=== PATIENT | female | born 1980 | race Caucasian/White ===

== ENCOUNTER 2016-07-10 12:15 | Inpatient (IN) | payer OTHER ==
[2016-07-10 12:42] LABS: ADD MORPH? NO; FRAGMENT RBC FLAG 0 (0-99); LIPEMIA HEMOLYSIS FLAG 90 (0-99); PLATELET CLUMPS FLAG 0 (0-99)
[2016-07-10] MEDS ORDERED: NS 1,000 ML BAG *FOR SEPSIS ORDER SET ONLY IV ONE (12:51)
--- NOTE | 2016-07-10 12:51 | EDPHY ---
H & P Stated Complaint: cough/fever Time Seen by Provider: 07/10/16 12:27 HPI/ROS: CHIEF COMPLAINT: cough, fever HISTORY OF PRESENT ILLNESS: 36-year-old female presents complaining of cold symptoms x1 week worsening. Patient reports cough, shortness of breath, sore throat, nasal congestion that has worsened over the past 3 days. Patient reports chest pain with coughing and she feels short of breath. She took ibuprofen yesterday. Patient denies nausea, vomiting or diarrhea, no abdominal pain. She denies urinary symptoms times. Patient reports her symptoms significantly worsened in the last 24 hours. Subjective fever and chills. REVIEW OF SYSTEMS: A comprehensive 10 point review of systems is otherwise negative aside from elements mentioned in the history of present illness. Source: Patient Exam Limitations: No limitations - Personal History LMP (Females 10-55): Now Current Tetanus/Diphtheria Vaccine: No - Medical/Surgical History Hx Asthma: No Hx Chronic Respiratory Disease: No Hx Diabetes: No Hx Cardiac Disease: No Hx Renal Disease: No Hx Cirrhosis: No Hx Alcoholism: No Hx HIV/AIDS: No Hx Splenectomy or Spleen Trauma: No Other PMH: epilepsy - Family History Significant Family History: No pertinent family hx - Social History Smoking Status: Current every day smoker - Physical Exam Exam: Physical Exam Gen: Awake, restless HEENT: PERRL, dry mucous membranes, posterior pharynx with erythema, no exudate , uvula midline, no tonsillar swelling, no peritonsillar abscess, bilateral nasal turbinates with erythema and swelling, bilateral TMs normal NECK: no meningismus CV: Tachycardic rate and regular rhythm PULM: Rhonchi bilateral bases ABDOMEN: soft, non tender to palpation, BS present BACK: No CVA tenderness NEURO: Neurologically grossly intact EXTREMITIES: normal appearing SKIN: no rash or break in skin on exposed skin PSYCH: answers questions appropriately. Constitutional: Initial Vital Signs Temperature (C) 36.5 C 07/10/16 12:19 Heart Rate 125 H 07/10/16 12:19 Respiratory Rate 28 H 07/10/16 12:19 Blood Pressure 95/70 L 07/10/16 12:19 O2 Sat (%) 80 L 07/10/16 12:19 O2 Delivery Mode Non-Rebreather Mask O2 (L/minute) 15 Allergies/Adverse Reactions: acetaminophen [Acetaminophen] Allergy (Unknown, Verified 07/10/16 12:17) Other-Enter Comments naproxen [Naproxen] Allergy (Unknown, Verified 07/10/16 12:17) Other-Enter Comments Home Medications: Medication Instructions Recorded Divalproex ER [Depakote ER 500 MG 3,000 mg PO DAILY 11/21/12 (RX)] Cyclobenzaprine [Flexeril 10 MG 10 mg PO TID PRN 07/10/16 (*)] Temazepam [Restoril 15 MG (*)] 15 mg PO HS PRN 07/10/16 Medical Decision Making - Diagnostics Imaging: Chest x-ray independently reviewed by me- Findings: Extensive interstitial and slightly nodular infiltrates are present throughout both lungs. Findings are compatible with acute interstitial pneumonitis, such as acute viral pneumonitis. No pleural effusion. Heart size is normal.. Visualized osseous structures appear normal. Impression: Diffuse interstitial infiltrates throughout both lungs, potential viral pneumonitis.. Dictated By: Alex Foreman MD ED Course/Re-evaluation: 36-year-old female presents cold symptoms x1 week with fevers, cough shortness of breath and nasal congestion. Room air oxygen saturations are 80%. Patient is placed in a gown, placed on 6 L nasal cannula, IV established, CBC, chemistry panel, lactic acid, blood cultures, urinalysis and chest x-ray have been ordered. 1 L normal saline hanging. 1253-severe sepsis identified with patient being tachycardic, hypoxic and a lactic acid of 2.5. Sepsis order set initiated. 2 g ceftriaxone ordered. Chest x-ray is pending. I have reviewed the care of this patient with my supervising physician Dr. Caro. 1300-chest x-ray shows a bilateral pneumonia. The patient is has a map of 70. IV fluids are infusing. 1345-patient has a map of 77, repeat lactic acid ordered after patient has received 2 L normal saline. Patient reports feeling much better, she continues on a face mask with 15 L of oxygen heart rate down to 105, oxygen saturations 93 %. Patient admitted to the ICU to Dr. Hammond. PICC line has been ordered. 1410- Lactate down to 1.3. BP 108/70 with a map of 76. 1420- 500 mg of azithromycin IV has been ordered. 1500-Dr. Sifuentes with hospital medicine at bedside. Patient with a map of 82. Patient on continuous monitor, partner at bedside. - Data Points Laboratory Results: Laboratory Results 07/10/16 12:35 07/10/16 12:35 07/10/16 12:35 WBC REJ RBC REJ Hgb REJ Hct REJ MCV REJ MCH REJ MCHC REJ RDW REJ Plt Count REJ MPV REJ Neut % (Auto) Not Reported Lymph % (Auto) Not Reported Harlan % (Auto) Not Reported Eos % (Auto) Not Reported Baso % (Auto) Not Reported Nucleat RBC Rel Count REJ Absolute Neuts (auto) Not Reported Absolute Lymphs (auto) Not Reported Absolute Monos (auto) Not Reported Absolute Eos (auto) Not Reported Absolute Basos (auto) Not Reported Absolute Nucleated RBC REJ Immature Gran % Not Reported Immature Gran # Not Reported Platelet Estimate REJ VBG Lactic Acid 2.5 H mmol/L (0.7-2.1) Turbidity TNP Sodium TNP Potassium TNP Chloride TNP Carbon Dioxide TNP Anion Gap TNP BUN TNP Creatinine TNP Estimated GFR TNP Glucose TNP Calcium TNP Beta HCG, Qual REJ Specimen Hemolysis REJ Influenza Typ A,B (DFA) NEGATIVE FOR FLU (NEGATIVE) Medications Given: Discontinued Medications Ceftriaxone Sodium 2 gm/ (Dextrose) 50 mls @ 100 mls/hr IV EDNOW ONE PRN Reason: Protocol Stop: 07/10/16 13:23 Last Admin: 07/10/16 13:25 Dose: 50 mls Azithromycin 500 mg/ Dextrose 255 mls @ 255 mls/hr IV EDNOW ONE PRN Reason: Protocol Stop: 07/10/16 15:20 Last Admin: 07/10/16 15:23 Dose: 255 mls Sodium Chloride (Ns *For Sepsis Order Set Only*) 1,769 ml IV EDNOW ONE Stop: 07/10/16 12:52 Last Admin: 07/10/16 13:06 Dose: 1,769 ml Departure - Departure Disposition: [facility] Inpatient Acute Clinical Impression: Pneumonia Qualifiers: Pneumonia type: due to unspecified organism Laterality: bilateral Lung location : unspecified part of lung Qualifier Code: (J18.9) Pneumonia, unspecified organism
[2016-07-10] MEDS ORDERED: PIPERACILLIN/TAZO 4.5 GM/DEX 100 ML IV ONE (12:52)
[2016-07-10 12:54] LABS: ATYPICAL LYMPHOCYTE FLAG 100 (0-99); LEFT SHIFT FLG 290 (0-99)
[2016-07-10] MEDS ORDERED: cefTRIAXone 2 GM in D5W 50 ML IV ONE (12:54)
--- NOTE | 2016-07-10 13:13 | DX ---
PA and lateral chest. July 09, 2016. Clinical History: Flulike symptoms Comparison Study: September 03, 2012. Findings: Extensive interstitial and slightly nodular infiltrates are present throughout both lungs. Findings are compatible with acute interstitial pneumonitis, such as acute viral pneumonitis. No pleu ral effusion. Heart size is normal.. Visualized osseous structures appear normal. Impression: Diffuse interstitial infiltrates throughout both lungs, potential viral pneumonitis..
[2016-07-10 13:25] LABS: ABSOLUTE NRBC COUNT 0.09 10^3/uL (0-0.01); ADD DIFF? YES; ADD MORPH? NO; FRAGMENT RBC FLAG 0 (0-99); HEMATOCRIT 35.1 % (38.0-47.0); HEMOGLOBIN 12.5 g/dL (12.6-16.3); LIPEMIA HEMOLYSIS FLAG 90 (0-99); MEAN CELL HEMOGLOBIN 30.3 pg (27.9-34.1); MEAN CELL HEMOGLOBIN CONCENTR. 35.6 g/dL (32.4-36.7); MEAN CELL VOLUME 85.2 fL (81.5-99.8); MEAN PLATELET VOLUME 9.7 fL (8.7-11.7); NRBC-AUTO% 0.4 % (0.0-0.2); PLATELET CLUMPS FLAG 10 (0-99); PLATELET COUNT 217 10^3/uL (150-400); RED BLOOD CELL COUNT 4.12 10^6/uL (4.18-5.33); RED CELL DISTRIBUTION WIDTH 14.3 % (11.5-15.2)
[2016-07-10 13:27] LABS: ATYPICAL LYMPHOCYTE FLAG 120 (0-99); LEFT SHIFT FLG 300 (0-99)
[2016-07-10 13:40] LABS: ANION GAP 12 mEq/L (8-16); CALCIUM 6.9 mg/dL (8.5-10.4); CARBON DIOXIDE 26 mEq/l (22-31); CHLORIDE 98 mEq/L (97-110); CREATININE 0.6 mg/dL (0.6-1.0); GLOMERULAR FILTRATION RATE > 60; GLUCOSE 109 mg/dL (70-100); POTASSIUM 3.1 mEq/L (3.5-5.2); SODIUM 136 mEq/L (134-144)
[2016-07-10] MEDS ORDERED: ALTEPLASE 2 MG VIAL IVP PRN (13:41)
[2016-07-10 13:50] LABS: PLATELET ESTIMATE ADEQUATE (ADEQ)
[2016-07-10 13:57] LABS: COLOR YELLOW; LEUKOCYTE ESTERASE,URINE NEGATIVE (NEGATIVE); NITRITE,URINE NEGATIVE (NEGATIVE)
[2016-07-10 14:05] LABS: BACTERIA TRACE /hpf (NONE SEEN); MUCUS TRACE /lpf (NONE-1+)
[2016-07-10] MEDS ORDERED: AZITHROMYCIN IV 500 MG in D5W 250 ML IV ONE (14:21)
[2016-07-10 14:22] LABS: IONIZED CALCIUM 0.94 MMOL/L (1.12-1.30)
[2016-07-10] MEDS ORDERED: ONDANSETRON 4 MG/2 ML VIAL IVP PRN (14:30)
[2016-07-10] MEDS ORDERED: ONDANSETRON DISINTEGRATING 4 MG TAB PO PRN (14:30)
[2016-07-10] MEDS ORDERED: PROTOCOL MAGNESIUM 1 DOSE IV PRN (14:34)
[2016-07-10] MEDS ORDERED: PROTOCOL POTASSIUM 1 DOSE MISC PRN (14:34)
[2016-07-10 14:36] LABS: ALBUMIN 2.4 g/dL (3.5-5.0); BILIRUBIN,TOTAL 0.5 mg/dL (0.1-1.4); BILIRUBIN-CONJUGATED 0.5 mg/dL (0.0-0.5); TOTAL PROTEIN 5.3 g/dL (6.3-8.2)
[2016-07-10] MEDS ORDERED: CALCIUM GLUCONATE 2 GM in D5W 50 ML IV ONE (14:40)
[2016-07-10] MEDS ORDERED: PROTOCOL CALCIUM 1 DOSE IV PRN (14:41)
[2016-07-10 15:04] LABS: MAGNESIUM 2.2 mg/dL (1.6-2.3)
--- NOTE | 2016-07-10 16:57 | GHP ---
[f rep st] HISTORY AND PHYSICAL DATE OF ADMISSION: 07/10/2016 CHIEF COMPLAINT: Acute hypoxia, cough. HISTORY OF PRESENT ILLNESS: Patient is a 36-year-old female with history of epilepsy, presenting wit h upper respiratory symptoms for 1 week and acute hypoxia. Reports having a cough with green sputum production, sore throat, fevers and chills for the past week. Also endorses headache, nausea, decrea sed p.o. intake. Endorses chills, sweats, shortness of breath. Pain under ribs, sharp in nature, es pecially with coughing. Denies any ill contacts. Denies nausea, vomiting or diarrhea. Does endorse myalgias. Denies IV drug use. No recent travel. Only pets are 2 cats which she has had a long carlos e. No birds. REVIEW OF SYSTEMS: A complete 10-point review of systems negative except as noted in HPI. PAST MEDICAL HISTORY: Epilepsy, last seizure was 2 weeks ago. States has seizures twice a week, fol lowed by Dr. Ren, at [place]. PAST SURGICAL HISTORY: Oral surgery. SOCIAL HISTORY: Lives in [place] with caregiver, Julien. Tobacco use: 1 pack every 2 days but has n ot smoked in the past week. Smokes marijuana daily. No alcohol. Denies IV drug use. Disabled seco ndary to epilepsy. FAMILY HISTORY: No strokes or heart attacks. MEDICATIONS: See medication reconciliation. ALLERGIES: Naproxen, Advil, and Tylenol. PHYSICAL EXAMINATION: VITAL SIGNS: Temperature 36.5, blood pressure 95/70, heart rate 125, respirat ions 28, 80% on room air. Blood pressure now 98/64, 92% on 50 L OxyMask. GENERAL: Patient is very i ll appearing, uncomfortable. HEENT: PERRLA. EOMI. Very dry mucous membranes. Oropharynx is clear . No exudate or erythema. No ulcerations. CV: Tachy but regular. No murmurs, gallops, or rubs. LUNGS: Rhonchorous throughout. Decreased breath sounds at bases. ABDOMEN: Soft, nontender, nondis tended. Positive bowel sounds. : No suprapubic tenderness. MUSCULOSKELETAL: Moving all extremi ties. NEURO: 2-12 intact. No focal deficits. PSYCHIATRIC: Alert and oriented x3. LABORATORY DATA: WBC 25, hemoglobin 12, hematocrit 35, platelets 217. Lactic acid is 2.5, repeat wa s 1.3. Sodium 136, potassium 3.1, chloride 98, carbon dioxide 26, BUN 10, creatinine 0.6, glucose 10 9, calcium 6.9. 0.94. AST 29, ALT 129, bilirubin 0.5, albumin 2.4, total protein 5.3, ma gnesium 2.2. Trace urine bacteria, +3 blood. Influeza DFA negative. Influenza PCR pending. EKG pe nding. Chest x-ray, personally reviewed by me, diffuse bilateral infiltrates. ASSESSMENT AND PLAN: 1. Sepsis secondary to pulmonary source. Suspect this is a viral etiology but could be superimposed with bacteria. DFA influenza was negative. Awaiting PCR for confirmation. Also checking a respira tory viral panel, as well as induced sputum. We will treat with ceftriaxone and azithromycin. We wi ll ask patient if may check HIV. 2. Leukocytosis secondary to sepsis secondary to pulmonary source. Blood cultures are pending. Spu dalia cultures and viral panel as above. 3. Lactic acidosis secondary to starvation ketoacidosis and hypotension. This resolved with IV flui ds quickly. 4. Hypocalcemia, repleting. We will place on electrolyte protocol. 5. Hypokalemia secondary to decreased p.o. intake, repleting today. Magnesium is normal. We will p lace on protocol. 6. Acute hypoxemic respiratory failure secondary to suspected viral etiology. Continue antibiotics. 7. Hypotension secondary to decreased p.o. intake. This has improved with aggressive IV fluids. We will continue this. Monitor in the ICU closely. 8. Epilepsy, continue home medications. 9. Diet: Regular. 10. DVT prophylaxis, Lovenox. DISPOSITION: The patient warrants ICU admission given acute sepsis, hypotension warranting aggressiv e IV fluid resuscitation, as well as antibiotics. /[id number]/MODL
[2016-07-10] MEDS: NS 1,000 ML IV SCH ×2 (17:13→22:56)
[2016-07-10] MEDS: guaiFENesin/CODEINE PHOS 10 ML UDCUP PO PRN ×2 (17:38→22:56)
[2016-07-10] MEDS: POTASSIUM Cl (KCl) 100 ML IV SCH ×3 (17:42→19:47)
--- NOTE | 2016-07-10 18:02 | GCON ---
[f rep st] CONSULTATION LPN OR MEDICAL ASSISTANT CONSULTATION REASON FOR ADMISSION: Diffuse pneumonia. HISTORY: Ms. Gregorio is a very pleasant 36-year-old white female with a past medical history of seizu re disorder. She presents with a 1-week history of increasing breathlessness. This is associated wi th a cough, as well as sore throat. Over last several days, her cough has increased and worsened in severity. Her cough is productive of yellowish to green sputum. She admits some chest pain. There has been no nausea or vomiting. No diarrhea. Prior to this, she was in her normal state of health. She is markedly dyspneic at this time. PAST MEDICAL HISTORY: Again, significant for seizure disorder. ALLERGIES: No known allergies to medications. SOCIAL HISTORY: She is a 15 pack-year smoker and continues to smoke. No significant alcohol use. S he does smoke marijuana. She is currently disabled. She lives with a partner, has good family suppo rt. PHYSICAL EXAM: VITAL SIGNS: Blood pressure 90/64, pulse 100, respirations 20, temperature 36.7, oxy gen saturation 92% on 15% OxyMask. GENERAL: She is a very thin 36-year-old white female, who is in mild respiratory distress. HEENT: Eyes are INGRIS, EOMI. Throat shows no erythema or tonsillar hype rtrophy. NECK: Supple. There is no cervical adenopathy. HEART: Regular rate and rhythm without m urmurs, rubs, or gallops. LUNGS: Show diminished breath sounds. A few bibasilar crackles, but no w heeze. ABDOMEN: Soft, nontender. Bowel sounds are present in all 4 quadrants. EXTREMITIES: No cl ubbing, cyanosis, or edema. LABORATORIES: White count is 25.2, hemoglobin 12, hematocrit 35, platelet count is 217. Sodium 136, potassium 3.1 chloride 98, CO2 is 26, BUN 10, creatinine 0.6, glucose is 109. Alkaline phosphatase i s elevated at 128. Urinalysis is negative. Influenza A and B by DFA are negative for flu. IMAGING: Chest x-ray shows diffuse interstitial infiltrates in both lungs. IMPRESSION: 1. Diffuse pneumonia: Query whether this is indeed viral, which is most likely. Must also take int o consideration atypical bacterial pneumonia. 2. Respiratory failure. 3. History of seizure disorder. 4. Chest pain. 5. Hypokalemia. RECOMMENDATIONS: 1. I agree with current antibiotic coverage of Rocephin, as well as azithromycin. 2. Frequent nebulized treatments with albuterol. 3. Adequate pain control. 4. Supplemental oxygen, weaning as tolerated. 5. Close cardiopulmonary monitoring. 6. DVT and PE prophylaxis. 7. Stress ulcer prophylaxis. /[id number]/MODL
[2016-07-10] MEDS: BENZONATATE 100 MG CAP PO PRN (18:15)
[2016-07-10] MEDS ORDERED: NS 2,000 ML IV ONE (18:30)
[2016-07-10] MEDS: CYCLOBENZAPRINE 10 MG TAB PO PRN (20:56)
[2016-07-10] MEDS: IPRATROPIUM/ALBUTEROL 3 ML DEYVIAL IH SCH (22:23)
[2016-07-10 22:25] LABS: BASE EXCESS -1.6 mEq/L (-2.5-2.5); BICARBONATE 21 mEq/L (22-26); MEASURED OXYGEN SATURATION 90 % (92-95); PCO2 28 mmHg (34-38); PO2 60 mmHg (65-75); TCO2 22 mEq/L (23-27)
[2016-07-10 22:26] LABS: O2 CONCENTRATIION 65 % (0-100); P/F RATIO 92 RATIO
[2016-07-11] MEDS: BENZONATATE 100 MG CAP PO PRN ×3 (01:19→19:33)
[2016-07-11 03:20] LABS: HEMATOCRIT 32.3 % (38.0-47.0); HEMOGLOBIN 11.1 g/dL (12.6-16.3); IONIZED CALCIUM 1.05 MMOL/L (1.12-1.30); MEAN CELL HEMOGLOBIN 29.8 pg (27.9-34.1); MEAN CELL HEMOGLOBIN CONCENTR. 34.4 g/dL (32.4-36.7); MEAN CELL VOLUME 86.6 fL (81.5-99.8); RED BLOOD CELL COUNT 3.73 10^6/uL (4.18-5.33); RED CELL DISTRIBUTION WIDTH 14.6 % (11.5-15.2)
[2016-07-11 03:34] LABS: ANION GAP 6 mEq/L (8-16); CALCIUM 6.4 mg/dL (8.5-10.4); CARBON DIOXIDE 23 mEq/l (22-31); CHLORIDE 111 mEq/L (97-110); CREATININE 0.5 mg/dL (0.6-1.0); GLOMERULAR FILTRATION RATE > 60; GLUCOSE 95 mg/dL (70-100); MAGNESIUM 1.9 mg/dL (1.6-2.3); SODIUM 140 mEq/L (134-144)
[2016-07-11] MEDS ORDERED: CALCIUM GLUCONATE 50 ML IV ONE (03:34)
[2016-07-11 03:51] LABS: POTASSIUM 2.7 mEq/L (3.5-5.2)
[2016-07-11] MEDS: POTASSIUM Cl (KCl) 50 ML IV SCH (04:15)
[2016-07-11] MEDS: guaiFENesin/CODEINE PHOS 10 ML UDCUP PO PRN ×2 (04:15→13:04)
[2016-07-11] MEDS: NS 1,000 ML IV SCH ×2 (04:15→18:05)
[2016-07-11] MEDS: IPRATROPIUM/ALBUTEROL 3 ML DEYVIAL IH SCH ×3 (05:34→17:18)
[2016-07-11] MEDS: CYCLOBENZAPRINE 10 MG TAB PO PRN ×2 (06:17→16:37)
--- NOTE | 2016-07-11 08:25 | HOSPPROG ---
Hospitalist Progress Note Assessment/Plan: #Severe sepsis -due to viral vs bacterial PNA -influenza and viral panel negative. -resp culture pending -cont IV CTX/azithro -MAP borderline despite IVFs, if persistent, start Levophed and evaluate with TTE #Leukocytosis -improved on abx -resp and blood cultures pending -HIV negative #Acute hypoxemic resp failure -due resp infection -cont to wean oxygen as tolerates #Pleuritis/chest pain -due to cough -anti-tussives #Lactic acidosis -resolved with IVFs #Hypokalemia -lyte protocol #Hypocalcemia -repleting #Moderate protein caloric malnutrition -albumin 2.4 #Epilepsy -cont home meds -Depakote level subtherapeutic #Diet: regular #DVT ppx: Lovenox #Disp: warrant ICU admission with severe sepsis, IVFs, abx Subjective: still feeling very poorly, but less SOB Objective: Vital Signs Temp Pulse Resp BP Pulse Ox 38.0 C 100 23 H 91/68 L 98 07/11/16 04:00 07/11/16 07:00 07/11/16 07:00 07/11/16 07:00 07/11/16 07:00 Laboratory Results 07/11/16 03:00 07/11/16 03:00 07/10/16 07/11/16 07/12/16 05:59 05:59 05:59 Intake Total 6475 Output Total 2000 300 Balance 4475 -300 - Physical Exam Constitutional: other (very ill-appearing) Eyes: PERRL Ears, Nose, Mouth, Throat: moist mucous membranes, dry mucous membranes Cardiovascular: regular rate and rhythym Respiratory: rhonchi Gastrointestinal: normoactive bowel sounds, other (mild diffuse abd TTP) Genitourinary: no bladder fullness Skin: warm Musculoskeletal: generalized weakness Neurologic: AAOx3 Psychiatric: other (lethargic) ICD10 Worksheet Patient Problems: Problems Problem Status Diagnosed Pneumonia Acute
[2016-07-11] MEDS: AZITHROMYCIN IV 500 MG in D5W 250 ML IV SCH (08:28)
[2016-07-11] MEDS: ENOXAPARIN 40 MG/0.4 ML SYR SC SCH (08:28)
[2016-07-11] MEDS ORDERED: DIVALPROEX ER 500 MG TAB PO SCH (09:00)
--- NOTE | 2016-07-11 09:19 | PDINTPN ---
[facility] [employer] [employer] Progress Note Assessment/Plan: Assessment/plan: * PNA- CAP- viral versus atypical vs aspiration. Improved wbc on ctx/zithromax. Cx's NTD. Checking strep and legionella urinary antigen * Septic shock- 2/2 # 1. MAP borderline at 64 despite 4 liters since admit. CVP <5 but will check NICOM fo additional fluids. Start levophed for target MAP >65. Vasopressin if levo>10 mcg. Check lactate. Doubt cardiac but if fails to respond will check echo. * Sz d/o- currently on depakote. check level * Nausea/emesis 07/11/16 09:13 07/11/16 09:22 Objective: Vital Signs Temp Pulse Resp BP Pulse Ox 37 C 93 12 89/56 L 96 07/11/16 08:00 07/11/16 08:00 07/11/16 08:00 07/11/16 08:00 07/11/16 08:00 Laboratory Results 07/11/16 03:00 07/11/16 03:00 07/10/16 07/11/16 07/12/16 05:59 05:59 05:59 Intake Total 6475 Output Total 2000 300 Balance 4475 -300 Laboratory Tests 07/10/16 22:20 Patient Temperature 37.0 pCO2 28 L pO2 60 L Total CO2 22 L ABG pH 7.48 H ABG PO2/FiO2 Ratio 92 ABG O2 Saturation 90 L ABG Base Excess -1.6 Total O2 Concentration 25.0 O2 Concentration % 65 - Time Spent With Patient Time Spent With Patient: critical care time 30 minutes from [id number] Physical Exam - Physical Exam General Appearance: alert, no apparent distress EENT: PERRL/EOMI Neck: non-tender, full range of motion, supple Respiratory: lungs clear, No rales, No rhonchi, No wheezing Cardiac/Chest: normal peripheral pulses, regular rate, rhythm, No friction rub Abdomen: normal bowel sounds, non-tender, soft Skin: normal color, warm/dry, No jaundice Lymphatic: no adenopathy Neuro/Psych: no motor/sensory deficits, alert, oriented x 3 ICD10 Worksheet Patient Problems: Problems Problem Status Diagnosed Pneumonia Acute
--- NOTE | 2016-07-11 09:21 | DX ---
Portable Chest at 0607 hours History: Reassess pneumonia. Comparison: Portable chest July 10, 2016 at 1707 hours. Findings: Left PICC tip is at the cavoatrial junction. There is increase in diffuse reticular nodular opacities and patchy consolidation, most prominent in the left lower lobe. There is no visible pneum othorax. A left pleural effusion is suspected. Heart size is normal. The bones are stable. Impression: Increasing multifocal consolidation, suggesting worsening pneumonia, with a probable smal l left pleural effusion.
[2016-07-11] MEDS ORDERED: NOREPINEPHRINE BITARTRATE 4 MG in D5W 500 ML IV SCH (09:30)
[2016-07-11] MEDS: NS 500 ML IV PRN ×4 (09:46→14:49)
[2016-07-11 11:34] LABS: RESPPCR RESULT SEE COMMENTS
[2016-07-11 11:47] LABS: ALANINE AMINOTRANSFERASE 20 IU/L (9-52); ALBUMIN 1.5 g/dL (3.5-5.0); ALKALINE PHOSPHATASE 86 IU/L (38-126); AMYLASE < 30 IU/L (30-110); ASPARTATE AMINOTRANSFERASE 15 IU/L (14-46); BILIRUBIN,TOTAL 0.1 mg/dL (0.1-1.4); BILIRUBIN-CONJUGATED 0.1 mg/dL (0.0-0.5); TOTAL PROTEIN 3.9 g/dL (6.3-8.2)
[2016-07-11] MEDS ORDERED: PNEUMOCOCCAL 0.5ML VACCINE VIAL IM ONE (11:56)
[2016-07-11] MEDS ORDERED: FLU VACC QS 2016-17(3-64YR)/PF 0.5 ML SYR (FLUARIX QUAD) IM ONE ×2 (11:56→13:05)
--- NOTE | 2016-07-11 15:04 | DX ---
AP Portable Chest July 11, 2016 INDICATION: Post line placement. FINDINGS: Left sided PICC terminates in the SVC. Diffuse pulmonary infiltrates are unchanged. IMPRESSION: Good positioning of left-sided PICC, ready for immediate use.
--- NOTE | 2016-07-11 16:09 | IR ---
Imaging Guided Peripherally Inserted Central Catheter History: Severe sepsis. Prophylactic Antibiotic: Cefazolin was not ordered and administered for antimicrobial prophylaxis be cause it was not medically necessary for this procedure. VTE Prophylaxis: There is not an order for VTE prophylaxis to be given within 24 hours after procedu re end time because it was not medically necessary for this procedure. Crosscutting Measure: Patient's current list of medications including all known prescriptions, over- the-counters, herbals, and vitamin/mineral/dietary supplements are reviewed. Medications' name, dosa ge, frequency, and route of administration are confirmed. Patient is a non-smoker. Technique: This procedure is performed at patient's bedside. No fluoroscopy was utilized. Following i nformed consent, the left arm was prepped and draped in sterile fashion. 1% Xylocaine was used for lo ulises anesthetic. All elements of maximal sterile barrier technique including cap, mask, sterile gown , sterile gloves, large sterile sheet, hand hygiene, and 2% chlorhexidine for cutaneous antisepsis, f ollowed. Ultrasound evaluation of potential access site was performed. After successfully identifying a patent vessel, ultrasound guidance was used to puncture the vein. A permanent recording was created for the patient's record. Ultrasound transducer was placed in sterile sleeve and used for real-time imaging guidance over steri le gel to enter the basilic vein. 0.018 measuring wire was passed centrally. A skin guanako with scalpel blade was followed by removing the access needle. A 5 Mohawk peel-away sheath was followed by a 5 F rench double-lumen central catheter, trimmed to 38 cm length. The tip of the catheter was positioned centrally and the guidewire removed. The hub of the catheter was fixed to the skin using a sterile S tatLock adhesive device, and a sterile dressing was applied. The catheter was irrigated. Fluoroscopy: 0 min Dose: 0 mGy Exposures: 0 images Impression: 5 Mohawk double lumen peripherally inserted central catheter. Chest x-ray to follow to e valuate tip placement.
[2016-07-11] MEDS: DIVALPROEX ER 500 MG TAB PO SCH (17:58)
[2016-07-11 18:15] LABS: POTASSIUM 3.3 mEq/L (3.5-5.2)
[2016-07-11] MEDS ORDERED: POTASSIUM CL 10 MEQ TAB PO ONE (20:22)
[2016-07-11] MEDS: TEMAZEPAM 15 MG CAP PO PRN (21:58)
[2016-07-12] MEDS: IPRATROPIUM/ALBUTEROL 3 ML DEYVIAL IH SCH ×6 (00:01→20:21)
[2016-07-12] MEDS: guaiFENesin/CODEINE PHOS 10 ML UDCUP PO PRN (01:15)
[2016-07-12] MEDS: BENZONATATE 100 MG CAP PO PRN ×2 (01:16→20:16)
[2016-07-12] MEDS: CYCLOBENZAPRINE 10 MG TAB PO PRN ×2 (02:00→22:51)
[2016-07-12 04:18] LABS: IONIZED CALCIUM 1.11 MMOL/L (1.12-1.30)
[2016-07-12 04:33] LABS: ANION GAP 7 mEq/L (8-16); CARBON DIOXIDE 21 mEq/l (22-31); CHLORIDE 116 mEq/L (97-110); CREATININE 0.6 mg/dL (0.6-1.0); GLOMERULAR FILTRATION RATE > 60; GLUCOSE 94 mg/dL (70-100); POTASSIUM 3.4 mEq/L (3.5-5.2); SODIUM 144 mEq/L (134-144)
[2016-07-12 04:35] LABS: HEMATOCRIT 30.7 % (38.0-47.0); HEMOGLOBIN 10.5 g/dL (12.6-16.3); MEAN CELL HEMOGLOBIN 29.9 pg (27.9-34.1); MEAN CELL HEMOGLOBIN CONCENTR. 34.2 g/dL (32.4-36.7); MEAN CELL VOLUME 87.5 fL (81.5-99.8); RED BLOOD CELL COUNT 3.51 10^6/uL (4.18-5.33); RED CELL DISTRIBUTION WIDTH 15.2 % (11.5-15.2)
[2016-07-12] MEDS ORDERED: CALCIUM GLUCONATE 50 ML IV ONE (04:51)
[2016-07-12] MEDS: POTASSIUM Cl (KCl) 50 ML IV SCH ×2 (06:05→06:21)
[2016-07-12] MEDS: DIVALPROEX ER 500 MG TAB PO SCH (08:54)
[2016-07-12] MEDS: AZITHROMYCIN IV 500 MG in D5W 250 ML IV SCH (08:55)
[2016-07-12] MEDS: ENOXAPARIN 40 MG/0.4 ML SYR SC SCH (08:55)
[2016-07-12 12:18] LABS: IONIZED CALCIUM 1.13 MMOL/L (1.12-1.30)
[2016-07-12 12:44] LABS: MAGNESIUM 2.3 mg/dL (1.6-2.3); POTASSIUM 4.4 mEq/L (3.5-5.2)
[2016-07-12] MEDS: oxyCODONE IR 5 MG TAB PO PRN ×3 (14:23→22:34)
--- NOTE | 2016-07-12 14:36 | PDINTPN ---
[facility]ffic [facility] Referee Progress Note Assessment/Plan: Assessment/plan: * PNA- CAP- viral versus atypical vs aspiration. Continues to improve with reduced O2 requirement Checking strep and legionella urinary antigen (still pending) * Septic shock- 2/2 # 1. Very fluid responsive by NICOM though MAP >65 currently. Never needed much levophed either. * Sz d/o- currently on depakote. Level very low so will ask about compliance. * Abdominal pain- out of proportion to exam. Recheck lactate level. Reports bowel movements. 07/11/16 09:13 07/11/16 09:22 07/12/16 14:33 Objective: Vital Signs Temp Pulse Resp BP Pulse Ox 36.5 C 79 33 H 88/56 L 90 L 07/12/16 12:00 07/12/16 14:00 07/12/16 14:00 07/12/16 14:00 07/12/16 14:00 Microbiology 07/10/16 18:15 - Final Sputum, Induced/Suctioned Laboratory Results 07/12/16 04:05 07/12/16 12:10 07/11/16 07/12/16 07/13/16 05:59 05:59 05:59 Intake Total 6475 6975 Output Total 1999 1150 800 Balance 4475 5850 -800 Physical Exam - Physical Exam General Appearance: alert, no apparent distress EENT: PERRL/EOMI Respiratory: chest non-tender, lungs clear, normal breath sounds, No rales, No rhonchi, No wheezing Cardiac/Chest: regular rate, rhythm, No systolic murmur Abdomen: soft, other (tender LLQ), No distended, No guarding Rectal: No normal exam Skin: normal color, warm/dry, No cyanosis, No rash Extremities: normal range of motion, No pedal edema, No swelling Neuro/Psych: alert, normal mood/affect, oriented x 3 ICD10 Worksheet Patient Problems: Problems Problem Status Diagnosed Pneumonia Acute
--- NOTE | 2016-07-12 15:16 | ECHO ---
[id number] + + [address] : : [place] [address] : : [phone] + + Adult Echocardiographic Report + -------+ :Name: PATRICIA RIVERA MStudy Date: 07/12/2016 11:13 AM : : Hospital Admission Number: [id number] Locati on: 254: :: 1980 Gender: Female : :Age: 36 yrs Race: WH : :Reason For Study: Hypotension : + -------+ MMode/2D Measurements & Calculations IVSd: 0.42 cm LVIDd: 4.8 cm FS: 40.0 % Ao root diam: LVPWd: 0.63 cm LVIDs: 2.9 cm EDV(Teich): 2.9 cm 107.5 ml LA dimension: ESV(Teich): 3.2 cm 31.7 ml EF(Teich): 70.5 % LVLd ap4: 7.8 cm SV(MOD-sp4): EDV(MOD-sp4): 45.0 ml 68.0 ml LVLs ap4: 6.7 cm ESV(MOD-sp4): 23.0 ml EF(MOD-sp4): 66.2 % Normal Measurement Values: + + :LVIDd (3.5-5.7cm) IVSd (0.6-1.1cm) LVPWd (0.6-1.1cm) Aortic Root (2.0-3.7cm)Left Atrium (1.5-4.0cm): :LV Vol(d) (76-115ml) LV Vol(s) (29-48ml) Ejec Fraction (50-65%)PV Dre (0.6- 1.2m/s) TV Dre (0.4-1.0m/s) : :MV E Dre (0.8-1.0m/s)MV A Dre (0.3-1.0m/s)LVOT Dre (0.7-1.2m/s) Asc Ao Dre ( 0.9-1.8m/s) : + + Doppler Measurements & Calculations MV E max dre: 86.9 cm/sec Ao V2 max: 134.0 cm/sec TR max dre: 233.0 cm/sec MV A max dre: 63.7 cm/sec Ao max P.2 mmHg TR max P.7 mmHg MV E/A: 1.4 Ao mean P.0 mmHg RAP systole: 5.0 mmHg Ao V2 mean: 85.9 cm/sec RVSP(TR): 26.7 mmHg Ao V2 VTI: 23.8 cm Left Ventricle The left ventricle is normal in size. There is normal left ventricular wall thickness. Left ventricular systolic function is normal. Ejection Fraction = 60-65%. No regional wall motion abnormalities noted. Right Ventricle The right ventricle is normal in size and function. Atria The left atrial size is normal. Right atrial size is normal. There is an echodense structure in the RA that may be a prominent Eustachian valve, but pathological lesion cannot be ruled out. There is vigorous inflow into the RA that may be IVC flow vs anomalous pulmonary venous return. Consider NATAN and/or cardiac CT. Mitral Valve The mitral valve is normal in structure and function. There is no evidence of mitral valve prolapse. There is no mitral valve stenosis. There is mild mitral regurgitation. Tricuspid Valve Normal tricuspid valve. There is mild tricuspid regurgitation. Right ventricular systolic pressure is normal. Aortic Valve The aortic valve opens well. There is no aortic stenosis. There is no aortic insufficiency. Pulmonic Valve The pulmonic valve is not well visualized. There is no pulmonic valvular regurgitation. Great Vessels The aortic root is normal size. Pericardium/Pleural There is no pericardial effusion. Conclusion A complete two-dimensional transthoracic echocardiogram was performed (2D, M-mode, Doppler and color flow Doppler). Left ventricular systolic function is normal. Ejection Fraction = 60-65%. There is mild mitral regurgitation. There is mild tricuspid regurgitation. Right ventricular systolic pressure is normal. There is an echodense structure in the RA that may be a prominent Eustachian valve, but pathological lesion cannot be ruled out. There is vigorous inflow into the RA that may be IVC flow vs anomalous pulmonary venous return. Consider NATAN and/or cardiac CT Final Reading Physician: Dr Ayesha Sanchez electronically signed on 07/12/2016 03:15 PM Ordering Physician: Diane Sifuentes Performed By: Mily Reeves, GÓMEZ
--- NOTE | 2016-07-12 16:01 | HOSPPROG ---
Hospitalist Progress Note Assessment/Plan: #Severe sepsis -due to viral vs bacterial PNA -influenza and viral panel negative. -resp culture pending -cont IV CTX/azithro -MAP borderline despite IVFs, was on low-dose Levophed overnight -TTE pending, random cortisol #Leukocytosis -improved on abx -resp and blood cultures pending -HIV negative #Acute hypoxemic resp failure -due resp infection -cont to wean oxygen as tolerates #Pleuritis/chest pain -improved -anti-tussives. Add oral opioids for longer-control. Would trial Toradol, but allergy to NSAIDs #Lactic acidosis -resolved with IVFs #Abd pain lipase, amylase normal #Hypokalemia -lyte protocol #Hypocalcemia -repleting #Moderate protein caloric malnutrition -albumin 2.4 #Epilepsy -cont home meds -Depakote level subtherapeutic. Query compliance #Diet: regular #DVT ppx: Lovenox #Disp: warrant ICU admission with severe sepsis, IVFs, abx Subjective: less chest pain. Abd pain today. Having BMs Objective: Vital Signs Temp Pulse Resp BP Pulse Ox 36.5 C 79 33 H 88/56 L 90 L 07/12/16 12:00 07/12/16 14:00 07/12/16 14:00 07/12/16 14:00 07/12/16 14:00 Microbiology 07/10/16 18:15 - Final Sputum, Induced/Suctioned Laboratory Results 07/12/16 04:05 07/12/16 12:10 07/11/16 07/12/16 07/13/16 05:59 05:59 05:59 Intake Total 6771 8121 Output Total 1999 1150 800 Balance 4475 6902 -800 - Physical Exam Constitutional: no apparent distress, other (ill-appearing) Eyes: PERRL Ears, Nose, Mouth, Throat: moist mucous membranes, hearing normal, dry mucous membranes Cardiovascular: regular rate and rhythym Respiratory: no respiratory distress, reduced air movement Gastrointestinal: normoactive bowel sounds, other (diffuse TTP, no rebound) Skin: warm Musculoskeletal: full muscle strength Neurologic: AAOx3 Psychiatric: interacting appropriately, other (lethargic) ICD10 Worksheet Patient Problems: Problems Problem Status Diagnosed Pneumonia Acute
[2016-07-12 19:08] LABS: POTASSIUM 4.2 mEq/L (3.5-5.2)
[2016-07-12] MEDS: TEMAZEPAM 15 MG CAP PO PRN (22:34)
[2016-07-12] MEDS: NS 1,000 ML IV SCH (22:35)
[2016-07-13] MEDS: guaiFENesin/CODEINE PHOS 10 ML UDCUP PO PRN ×3 (01:24→21:58)
[2016-07-13] MEDS: IPRATROPIUM/ALBUTEROL 3 ML DEYVIAL IH SCH ×4 (02:01→21:41)
[2016-07-13] MEDS: oxyCODONE IR 5 MG TAB PO PRN ×2 (03:36→21:59)
[2016-07-13] MEDS: NS 1,000 ML IV SCH (03:37)
[2016-07-13 05:00] LABS: IONIZED CALCIUM 1.17 MMOL/L (1.12-1.30)
[2016-07-13 05:12] LABS: HEMATOCRIT 29.9 % (38.0-47.0); HEMOGLOBIN 10.4 g/dL (12.6-16.3); MEAN CELL HEMOGLOBIN 30.5 pg (27.9-34.1); MEAN CELL HEMOGLOBIN CONCENTR. 34.8 g/dL (32.4-36.7); MEAN CELL VOLUME 87.7 fL (81.5-99.8); RED BLOOD CELL COUNT 3.41 10^6/uL (4.18-5.33); RED CELL DISTRIBUTION WIDTH 15.6 % (11.5-15.2)
[2016-07-13 05:21] LABS: ANION GAP 9 mEq/L (8-16); CALCIUM 7.4 mg/dL (8.5-10.4); CARBON DIOXIDE 18 mEq/l (22-31); CHLORIDE 117 mEq/L (97-110); CREATININE 0.5 mg/dL (0.6-1.0); GLOMERULAR FILTRATION RATE > 60; GLUCOSE 116 mg/dL (70-100); MAGNESIUM 2.1 mg/dL (1.6-2.3); POTASSIUM 4.1 mEq/L (3.5-5.2); SODIUM 144 mEq/L (134-144)
[2016-07-13 05:52] LABS: CORTISOL-AM 2.5 ug/dL (4.5-22.7)
[2016-07-13] MEDS: AZITHROMYCIN IV 500 MG in D5W 250 ML IV SCH (07:56)
[2016-07-13] MEDS: ENOXAPARIN 40 MG/0.4 ML SYR SC SCH (07:57)
[2016-07-13] MEDS: DIVALPROEX ER 500 MG TAB PO SCH (07:57)
--- NOTE | 2016-07-13 07:57 | DX ---
Portable Chest at 557 hours History: Evaluate for pneumonia/edema. Comparison: Portable chest 07/11/2016 and 07/10/2016. Findings: Left PICC tip is at the cavoatrial junction. There are increased small bilateral pleural ef fusions with hazy bibasilar opacities. Lung volumes are low. Diffuse reticulonodular opacities with p atchy opacities most prominent in the right upper lobe and left lung base are stable. Heart size is n ormal. The bones are stable. Impression: Increasing effusions with probable associated atelectasis with stable multifocal consolid ation that could be related to pneumonia or asymmetric pulmonary edema.
--- NOTE | 2016-07-13 08:21 | HOSPPROG ---
Hospitalist Progress Note Assessment/Plan: #Septic shock: resolved with IVFs, min pressors needed -due to viral vs bacterial PNA -influenza/viral panel negative. -Day 3/7 IV CTX/azithro -TTE showed normal EF #Leukocytosis -19 today. Afebrile. CXR c/w edema, Consider CT tomorrow if still up -there is echodense structure in RA that may be prominent Eustachian valve? Can consider NATAN. -resp/blood cultures NGTD, viral studies, HIV negative #Acute hypoxemic resp failure -due resp infection -now on 4L #Pleuritis/chest pain -improved -anti-tussives. Add oral opioids for longer-control. Would trial Toradol, but allergy to NSAIDs #Lactic acidosis -resolved with IVFs #Abd pain lipase, amylase normal #Hypokalemia/Hypocalcemia: lyte protocol #Moderate protein caloric malnutrition -albumin 2.4 #Epilepsy -Depakote level subtherapeutic. She reports med noncompliance. #Diet: regular #DVT ppx: Lovenox #Disp: warrant ICU admission with severe sepsis, IVFs, abx Subjective: SOB improved, less chest pain Objective: Vital Signs Temp Pulse Resp BP Pulse Ox 36.9 C 64 26 H 113/80 95 07/12/16 19:00 07/13/16 06:00 07/13/16 06:00 07/13/16 06:00 07/13/16 06:00 Microbiology 07/10/16 18:15 - Final Sputum, Induced/Suctioned Sputum Culture - Final Laboratory Results 07/13/16 04:50 07/13/16 04:50 07/12/16 07/13/16 07/14/16 05:59 05:59 05:59 Intake Total 6910 5792 Output Total 1150 800 Balance 5825 4992 - Physical Exam Constitutional: other (appears brighter today) Eyes: PERRL Ears, Nose, Mouth, Throat: dry mucous membranes Cardiovascular: regular rate and rhythym, no murmur, rub, or gallop, other (TTP over xyphoid) Respiratory: no respiratory distress, no rales or rhonchi Gastrointestinal: normoactive bowel sounds, soft, non-tender abdomen Genitourinary: no bladder fullness Skin: warm Musculoskeletal: full muscle strength Neurologic: AAOx3 Psychiatric: interacting appropriately ICD10 Worksheet Patient Problems: Problems Problem Status Diagnosed Pneumonia Acute
[2016-07-13] MEDS: CYCLOBENZAPRINE 10 MG TAB PO PRN (09:17)
[2016-07-13] MEDS: BENZONATATE 100 MG CAP PO PRN ×2 (11:37→18:42)
--- NOTE | 2016-07-13 13:54 | PDINTPN ---
Professional Security Officer Progress Note Assessment/Plan: Assessment/plan: * PNA- CAP- viral versus atypical vs aspiration. Continues to improve with reduced O2 requirement Checking strep and legionella urinary antigen (still pending). WBC still a bit high- if remains elevated in am may need CT though my suspicion for empyema is low. * Septic shock- 2/2 # 1. Very fluid responsive by NICOM though MAP >65 currently. Never needed much levophed either. Resolved * Sz d/o- currently on depakote. She reported suboptimal compliance. Recheck soon to eval dose. * Abdominal pain- improved. Lactate normal Objective: Vital Signs Temp Pulse Resp BP Pulse Ox 36.7 C 67 25 H 116/92 H 95 07/13/16 07:00 07/13/16 13:00 07/13/16 13:00 07/13/16 13:00 07/13/16 13:00 Microbiology 07/10/16 18:15 - Final Sputum, Induced/Suctioned Sputum Culture - Final Laboratory Results 07/13/16 04:50 07/13/16 04:50 07/12/16 07/13/16 07/14/16 05:59 05:59 05:59 Intake Total 6975 5792 Output Total 1150 800 Balance 5825 4992 Physical Exam - Physical Exam General Appearance: alert, no apparent distress EENT: PERRL/EOMI, normal ENT inspection Neck: full range of motion, supple Respiratory: lungs clear, normal breath sounds, No respiratory distress Cardiac/Chest: normal peripheral pulses, regular rate, rhythm, No JVD, No systolic murmur Abdomen: normal bowel sounds, non-tender, soft Skin: normal color, warm/dry, No rash Lymphatic: No no adenopathy Extremities: non-tender, No pedal edema Neuro/Psych: alert, normal mood/affect, oriented x 3 ICD10 Worksheet Patient Problems: Problems Problem Status Diagnosed Pneumonia Acute
--- NOTE | 2016-07-13 14:35 | PDINTPN ---
Room Service Food Service Attendant Progress Note Assessment/Plan: Assessment/plan: * PNA- CAP- viral versus atypical vs aspiration. Continues to improve with reduced O2 requirement Checking strep and legionella urinary antigen (still pending). WBC still a bit high- if remains elevated in am may need CT though my suspicion for empyema is low. * Septic shock- 2/2 # 1. Very fluid responsive by NICOM though MAP >65 currently. Never needed much levophed either. Resolved * Marcel d/o- currently on depakote. She reported suboptimal compliance. Recheck soon to eval dose. * Abdominal pain- improved. Lactate normal Objective: Vital Signs Temp Pulse Resp BP Pulse Ox 36.7 C 67 25 H 116/92 H 95 07/13/16 07:00 07/13/16 13:00 07/13/16 13:00 07/13/16 13:00 07/13/16 13:00 Microbiology 07/10/16 18:15 - Final Sputum, Induced/Suctioned Sputum Culture - Final Laboratory Results 07/13/16 04:50 07/13/16 04:50 07/12/16 07/13/16 07/14/16 05:59 05:59 05:59 Intake Total 0894 5724 Output Total 1150 800 Balance 5825 2862 ICD10 Worksheet Patient Problems: Problems Problem Status Diagnosed Pneumonia Acute
[2016-07-13] MEDS: TEMAZEPAM 15 MG CAP PO PRN (21:59)
[2016-07-14] MEDS: CYCLOBENZAPRINE 10 MG TAB PO PRN ×2 (03:02→09:34)
[2016-07-14 04:28] LABS: HEMATOCRIT 33.2 % (38.0-47.0); HEMOGLOBIN 10.9 g/dL (12.6-16.3); IONIZED CALCIUM 1.23 MMOL/L (1.12-1.30); MEAN CELL HEMOGLOBIN 29.6 pg (27.9-34.1); MEAN CELL HEMOGLOBIN CONCENTR. 32.8 g/dL (32.4-36.7); MEAN CELL VOLUME 90.2 fL (81.5-99.8); RED BLOOD CELL COUNT 3.68 10^6/uL (4.18-5.33); RED CELL DISTRIBUTION WIDTH 15.7 % (11.5-15.2)
[2016-07-14 04:47] LABS: ANION GAP 7 mEq/L (8-16); CALCIUM 7.2 mg/dL (8.5-10.4); CARBON DIOXIDE 22 mEq/l (22-31); CHLORIDE 115 mEq/L (97-110); CREATININE 0.6 mg/dL (0.6-1.0); GLOMERULAR FILTRATION RATE > 60; GLUCOSE 74 mg/dL (70-100); POTASSIUM 4.3 mEq/L (3.5-5.2); SODIUM 144 mEq/L (134-144)
[2016-07-14] MEDS: IPRATROPIUM/ALBUTEROL 3 ML DEYVIAL IH SCH ×4 (06:12→21:44)
[2016-07-14] MEDS: DIVALPROEX ER 500 MG TAB PO SCH (09:19)
[2016-07-14] MEDS: AZITHROMYCIN IV 500 MG in D5W 250 ML IV SCH (09:25)
[2016-07-14] MEDS: ENOXAPARIN 40 MG/0.4 ML SYR SC SCH (09:26)
[2016-07-14] MEDS: guaiFENesin/CODEINE PHOS 10 ML UDCUP PO PRN (12:27)
--- NOTE | 2016-07-14 13:28 | PDINTPN ---
Circulation Assistant Progress Note Assessment/Plan: Assessment/plan: * PNA- CAP- improving with marked reduction in O2 flow rate. WBC decreasing. Urinary Strep Ag positive may indicate Strep. pneumoniae. Cont current abx for now. * Hypoxia- 2/2 #1. May have been exacerbated by fluid bolus. Trial low dose lasix today. * Septic shock- 2/2 # 1. Very fluid responsive by NICOM though MAP >65 currently. Never needed much levophed either. Resolved * Sz d/o- currently on depakote. She reported suboptimal compliance. Repeat level therapeutic so continue curent dose. * Abdominal pain- improved. Lactate normal * dispo: dc home soon- perhaps when O2 flow rate down to 2-3 lpm with activity. Objective: Vital Signs Temp Pulse Resp BP Pulse Ox 36.6 C 81 29 H 97/67 L 88 L 07/14/16 12:00 07/14/16 12:00 07/14/16 12:00 07/14/16 12:00 07/14/16 12:00 Laboratory Results 07/14/16 04:20 07/14/16 04:20 07/13/16 07/14/16 07/15/16 05:59 05:59 05:59 Intake Total 5792 2395 650 Output Total 800 500 Balance 4992 2395 150 Physical Exam - Physical Exam General Appearance: alert, no apparent distress EENT: PERRL/EOMI, normal ENT inspection Neck: full range of motion, supple Respiratory: lungs clear, normal breath sounds, No rales, No rhonchi, No wheezing Cardiac/Chest: normal peripheral pulses, regular rate, rhythm, No JVD Abdomen: normal bowel sounds, non-tender, soft Skin: normal color, warm/dry, rash Extremities: normal range of motion, non-tender, No pedal edema Neuro/Psych: alert, normal mood/affect, oriented x 3 ICD10 Worksheet Patient Problems: Problems Problem Status Diagnosed Pneumonia Acute
[2016-07-14] MEDS ORDERED: FUROSEMIDE 20 MG/2 ML VIAL IVP ONE (13:29)
[2016-07-14] MEDS: BENZONATATE 100 MG CAP PO PRN ×2 (13:55→22:12)
[2016-07-14 15:49] LABS: CORTISOL/CREATININE RATIO 33 mcg/g Cr (0.7-85); CORTISONE/CREATININE RATIO 73 mcg/g Cr (6.6-176); CREATININE CONCENTRATION 108 mg/dL (())
--- NOTE | 2016-07-14 17:50 | HOSPPROG ---
Hospitalist Progress Note Assessment/Plan: 36 yo F pw septic shock and pna # septic shock: 2/2 pna as next, no longer in shock, continue to monitor # pna: personally reviewed cxr and noted to have multifocal pna, continue ctx/ azithro # acute hypoxic respiratory failure: 2/2 above, also likely some component of pulmonary edema based on imaging, continue abx, has been given 1 dose lasix and may require more, Has had increased o2 needs today, repeat cxr in am # leukocytosis: in setting of above, remains elevated, trending # pleuritis/chest pain: resolved # sz d/o: continue depakote # dispo: IP stay, remains in serious condition Patient new to my care. Old records reviewed and summarized as above. Care plan reviewed with CM> Subjective: no significant overnight events, patient continues to be short of breath with exertion Objective: Vital Signs Temp Pulse Resp BP Pulse Ox 36.6 C 77 29 H 97/67 L 93 07/14/16 12:00 07/14/16 16:55 07/14/16 12:00 07/14/16 12:00 07/14/16 16:55 Laboratory Results 07/14/16 04:20 07/14/16 04:20 07/13/16 07/14/16 07/15/16 05:59 05:59 05:59 Intake Total 5792 2395 1400 Output Total 800 1100 Balance 4992 2395 300 awake alert anicteric op clear rrr no mrg mod resp distress, inc wob, dec bs, bibasilar rales soft nt nd no cce warm dry well perfused oriented appropriate ICD10 Worksheet Patient Problems: Problems Problem Status Diagnosed Pneumonia Acute
[2016-07-14] MEDS: TEMAZEPAM 15 MG CAP PO PRN (22:15)
[2016-07-15 05:48] LABS: IONIZED CALCIUM 1.12 MMOL/L (1.12-1.30)
[2016-07-15] MEDS: IPRATROPIUM/ALBUTEROL 3 ML DEYVIAL IH SCH ×2 (05:48→11:50)
[2016-07-15 05:52] LABS: ABSOLUTE NRBC COUNT 0.02 10^3/uL (0-0.01); ADD DIFF? YES; ADD MORPH? NO; ADD SCAN? NO; ATYPICAL LYMPHOCYTE FLAG 70 (0-99); FRAGMENT RBC FLAG 0 (0-99); HEMATOCRIT 33.1 % (38.0-47.0); HEMOGLOBIN 11.2 g/dL (12.6-16.3); LEFT SHIFT FLG 60 (0-99); LIPEMIA HEMOLYSIS FLAG 90 (0-99); MEAN CELL HEMOGLOBIN 29.8 pg (27.9-34.1); MEAN CELL HEMOGLOBIN CONCENTR. 33.8 g/dL (32.4-36.7); MEAN PLATELET VOLUME 10.1 fL (8.7-11.7); NRBC-AUTO% 0.2 % (0.0-0.2); PLATELET CLUMPS FLAG 20 (0-99); PLATELET COUNT 201 10^3/uL (150-400); RED BLOOD CELL COUNT 3.76 10^6/uL (4.18-5.33); RED CELL DISTRIBUTION WIDTH 15.3 % (11.5-15.2)
[2016-07-15 06:12] LABS: ANION GAP 5 mEq/L (8-16); CALCIUM 7.6 mg/dL (8.5-10.4); CARBON DIOXIDE 31 mEq/l (22-31); CHLORIDE 105 mEq/L (97-110); CREATININE 0.6 mg/dL (0.6-1.0); GLOMERULAR FILTRATION RATE > 60; GLUCOSE 78 mg/dL (70-100); MAGNESIUM 1.8 mg/dL (1.6-2.3); POTASSIUM 4.3 mEq/L (3.5-5.2); SODIUM 141 mEq/L (134-144)
[2016-07-15 07:05] LABS: PLATELET ESTIMATE ADEQUATE (ADEQ); TOXIC GRANULATION PRESENT
[2016-07-15 07:39] VITALS: BP 96/61; PULSE 89; TEMP 97.8
[2016-07-15] MEDS: guaiFENesin/CODEINE PHOS 10 ML UDCUP PO PRN (07:55)
--- NOTE | 2016-07-15 08:18 | DX ---
Portable Chest, Single View July 15, 2016 7:59 a.m. Indication: Sepsis. Evaluate for pneumonia. Comparison: Portable chest dated July 13, 2016. Findings: New right pleural effusion and increasing right basilar consolidation. Left pleural effusio n has minimally increased in volume. Left basilar consolidation is unchanged. Heart size is normal. T he left PICC is well-positioned. Impression: Increasing bilateral pleural effusions and right basilar consolidation.
[2016-07-15] MEDS: AZITHROMYCIN IV 500 MG in D5W 250 ML IV SCH (09:10)
[2016-07-15] MEDS: ENOXAPARIN 40 MG/0.4 ML SYR SC SCH (09:10)
[2016-07-15] MEDS: DIVALPROEX ER 500 MG TAB PO SCH (09:11)
[2016-07-15] MEDS: BENZONATATE 100 MG CAP PO PRN (09:12)
[2016-07-15 11:13] VITALS: RESP 18
--- NOTE | 2016-07-15 12:32 | PDINTPN ---
Home Theatre Technician Progress Note Assessment/Plan: Assessment/plan: * PNA- CAP- Urinary Strep Ag positive may indicate Strep. pneumoniae. Continues to improve * Hypoxia- 2/2 #1. Improved with lasix. OK for home O2 * Septic shock- 2/2 # 1. Resolved. Very fluid responsive by NICOM though MAP > 65 currently. * Sz d/o- currently on depakote. She reported suboptimal compliance. Repeat level therapeutic so continue current dose. * Abdominal pain- improved. Lactate normal * dispo: OK to dc home 07/15/16 12:30 Objective: Vital Signs Temp Pulse Resp BP Pulse Ox 36.6 C 89 18 96/61 L 79 L 07/15/16 07:37 07/15/16 07:37 07/15/16 11:12 07/15/16 07:37 07/15/16 11:12 Laboratory Results 07/15/16 05:30 07/15/16 05:30 07/14/16 07/15/16 07/16/16 05:59 05:59 05:59 Intake Total 2395 3300 550 Output Total 85987 200 Balance 2395 -8550 350 Physical Exam - Physical Exam General Appearance: alert, no apparent distress EENT: PERRL/EOMI, normal ENT inspection Neck: full range of motion, supple Respiratory: lungs clear, normal breath sounds, No respiratory distress, No rales, No rhonchi, No wheezing Cardiac/Chest: normal peripheral pulses, regular rate, rhythm, No edema Abdomen: normal bowel sounds, non-tender, soft Skin: normal color, warm/dry, No rash Extremities: normal range of motion, non-tender, No pedal edema Neuro/Psych: alert, normal mood/affect, oriented x 3, No abnormal bilingual teacher II-XII ICD10 Worksheet Patient Problems: Problems Problem Status Diagnosed Pneumonia Acute
[2016-07-15 14:04] VITALS: O2SAT 92
--- NOTE | 2016-07-15 16:59 | PDDCSUM ---
Discharge Summary Discharge Summary: Dates of service 07/10-07/15/16 Consultations: pulmonary Procedures performed: PICC placement, echocardiogram Hospital course by problem: # septic shock: 2/2 pna as next, resolved by time of dc, initially requiring pressors to maintain adequate MAPS # pna: personally reviewed cxr and noted to have multifocal pna, tx'ed with ctx/ azithro in house and dc on levofloxacin to complete 10 day course # acute hypoxic respiratory failure: 2/2 pna as well as pulmonary edema from volume received in house, given IV lasix x 1, dc on abx as above as well as on 4L supplemental o2, suspect that she will be able to be taken off of oxygen in coming weeks, will f/u with PCP to determine timing of that # pulmonary edema/pleural effusions: related to PNA and volume overload from volume received for sepsis, has gotten IV lasix and suspect will continue to improve as she recovers # leukocytosis: in setting of above, remains elevated, trending # pleuritis/chest pain: resolved # sz d/o: continue depakote Dispo: will dc home, pt to f/u with PCP in coming week Meds: see EHR > 35 minutes spent in dc home, more than half in coordination of care
== END 2016-07-15 12:06 | disposition home or self-care (01) | DRG 871 ==
LOC: F2N 16:31
PROVIDERS: ADMIT Internal Medicine; ATTEND Internal Medicine
PROC: 02HV33Z Insertion of Infusion Device into Superior Vena Cava, Percutaneous Approach (ICD-10-PCS; principal; 2016-07-10)
DX: A41.9 Sepsis, unspecified organism (principal); R65.21 Severe sepsis with septic shock; J18.9 Pneumonia, unspecified organism; J96.01 Acute respiratory failure with hypoxia; E87.2 Acidosis; G40.909 Epilepsy, unspecified, not intractable, without status epilepticus; E87.6 Hypokalemia; E83.51 Hypocalcemia; Z23 Encounter for immunization
CPT/HCPCS: 82530-90; 83789-90; 87449-90; 96365; 97161-GP; 97165-GO; 97530-GO; 97535-GO; C1751; G0008; G0009; G8978-GP-CJ; G8979-GP-CI; G8987-GO-CK; G8988-GO-CI; G8989-GO-CI; J0456; J0610; J0696; J1650; J2543